=== PATIENT | male | born 1935 | race Caucasian/White ===

== ENCOUNTER 2017-06-30 14:57 | Observation (INO) | payer OTHER ==
[~2017-06-30] VITALS: Ht 175.3 cm; Wt 92.9 kg
[~2017-06-30 14:57] MED LIST: ACYCLOVIR400 MG PO; ASPIRIN81 M2 PO; ATENOLOL50 MG PO; ISOSORBIDE MONO60 MG PO; LEVAQUIN750 MG PO; LISINOPRIL10 MG PO; NEXIUM 24HR20 M2 PO; NORCO 5/3251 TABLET PO; PRAVASTATIN SOD80 MG PO; PRED FORTE100 DROP/5 LEFT EYE; VALACYCLOVIR500 MG PO
[2017-06-30 16:10] LABS: HEMATOCRIT 28.6 % (38.0-50.0); MCH 33.7 PG (29.0-34.0); MCHC 33.6 G/DL (30.0-36.0); MCV 100.4 FL (86-99); MEAN PLAT.VOLUME 9.4 uM^3 (9.0-12.4); PLATELET COUNT 147 K/uL (156-360); RBC DIS.WIDTH-CV 13.7 % (11.8-14.6); RBC DIS.WIDTH-SD 50.1 % (39-53); RED BLOOD COUNT 2.85 M/uL (4.00-5.50); WHITE BLOOD COUNT 7.1 K/uL (4.1-10.2)
[2017-06-30 16:16] LABS: INTER. NORMALIZED RATIO 1.1
[2017-06-30 16:18] LABS: PTT 31.4 SEC (25-37)
[2017-06-30 16:19] LABS: CHLORIDE 112 mEq/L (99-109); POTASSIUM 4.1 mEq/L (3.7-5.4); SODIUM 141 mEq/L (136-147)
[2017-06-30 16:20] LABS: GLUCOSE 114 mg/dL (70-99)
[2017-06-30 16:22] LABS: ANION GAP 8 MEQ/L (2-14)
[2017-06-30 16:24] LABS: GFR ESTIMATE (CALCULATED) 42 mL/min/
[2017-06-30 16:25] LABS: UREA NITROGEN (BUN) 29 mg/dL (9-23)
[2017-06-30] MEDS ORDERED: IMDUR30 MG PO (17:18)
[2017-06-30] MEDS ORDERED: LISINOPRIL20 MG PO (17:20)
[2017-06-30] MEDS ORDERED: NITROGLYCERIN0.4 MG SL (17:22)
[2017-06-30] MEDS ORDERED: BRILINTA90 MG PO (17:22)
[2017-06-30] MEDS ORDERED: PRED FORTE100 DROP/5 LEFT EYE (17:25)
[2017-06-30] MEDS ORDERED: ALEVE220 MG PO (17:27)
[2017-06-30 18:26] VITALS: BP 141/67
[2017-06-30 19:00] VITALS: BP 115/56
[2017-06-30 23:54] VITALS: BP 145/68
[2017-07-01 04:09] VITALS: BP 112/56
[2017-07-01 05:26] LABS: HEMATOCRIT 27.9 % (38.0-50.0); MCH 32.4 PG (29.0-34.0); MCHC 32.3 G/DL (30.0-36.0); MCV 100.4 FL (86-99); MEAN PLAT.VOLUME 9.9 uM^3 (9.0-12.4); PLATELET COUNT 127 K/uL (156-360); RBC DIS.WIDTH-CV 13.7 % (11.8-14.6); RBC DIS.WIDTH-SD 50.4 % (39-53); RED BLOOD COUNT 2.78 M/uL (4.00-5.50); WHITE BLOOD COUNT 5.9 K/uL (4.1-10.2)
[2017-07-01 06:06] LABS: ANION GAP 8 MEQ/L (2-14); CHLORIDE 109 MEQ/L (99-109); GFR ESTIMATE (CALCULATED) 37 mL/min/; GLUCOSE 98 mg/dL (70-99); POTASSIUM 4.3 MEQ/L (3.7-5.4); SAMPLE HEMOLYSIS CHECK 0; SAMPLE ICTERIC CHECK 0; SAMPLE LIPEMIA CHECK 0; SODIUM 141 MEQ/L (136-147); UREA NITROGEN (BUN) 29 mg/dL (9-23)
[2017-07-01] MEDS ORDERED: ELIQUIS5 MG PO (11:30)
[2017-07-01 11:55] VITALS: BP 155/87
== END 2017-07-01 14:45 | disposition home or self-care (01) ==
LOC: EME 14:57 → EDOF 16:51 → 5WEST 16:51 → EDOF 16:51 → ENRESERV 17:03 → 5WEST 18:05
PROVIDERS: Hospitalist; Nurse Practitioner Family
DX: I82.411 Acute embolism and thrombosis of right femoral vein (principal); I82.431 Acute embolism and thrombosis of right popliteal vein; I82.441 Acute embolism and thrombosis of right tibial vein; I12.9 Hypertensive chronic kidney disease with stage 1 through stage 4 chronic kidney disease, or unspecified chronic kidney disease; N18.9 Chronic kidney disease, unspecified; I25.10 Atherosclerotic heart disease of native coronary artery without angina pectoris; Z95.1 Presence of aortocoronary bypass graft; E78.5 Hyperlipidemia, unspecified; Z79.01 Long term (current) use of anticoagulants; Z96.641 Presence of right artificial hip joint; Z88.5 Allergy status to narcotic agent; Z79.82 Long term (current) use of aspirin
CPT/HCPCS: 80048; 80053; 85027; 85610; 85730; 93971; 99281; 99283; G0378; J1650

== ENCOUNTER 2017-08-14 21:28 | Emergency (ER) | payer OTHER ==
[~2017-08-14] VITALS: Ht 175.3 cm; Wt 89.4 kg
[~2017-08-14 21:28] MED LIST changes: +ALEVE220 MG PO; +BRILINTA90 MG PO; +ELIQUIS5 MG PO; +IMDUR30 MG PO; +LISINOPRIL20 MG PO; +NITROGLYCERIN0.4 MG SL
[2017-08-14 21:41] VITALS: BP 134/72
== END 2017-08-15 01:48 | disposition home or self-care (01) ==
LOC: EME 21:28
PROC: 0HQFXZZ Repair Right Hand Skin, External Approach (ICD-10-PCS; principal; 2017-08-14)
DX: S61.216A Laceration without foreign body of right little finger without damage to nail, initial encounter (principal); S50.311A Abrasion of right elbow, initial encounter; S80.211A Abrasion, right knee, initial encounter; W10.9XXA Fall (on) (from) unspecified stairs and steps, initial encounter; W45.8XXA Other foreign body or object entering through skin, initial encounter; W22.8XXA Striking against or struck by other objects, initial encounter; I10 Essential (primary) hypertension; E78.5 Hyperlipidemia, unspecified; Z86.718 Personal history of other venous thrombosis and embolism; Z79.01 Long term (current) use of anticoagulants
CPT/HCPCS: 99281; 99284; S0020